=== PATIENT | male | born 1985 | race Caucasian/White ===

== ENCOUNTER 2016-05-16 01:37 | Emergency (ER) | payer OTHER ==
[~2016-05-16] VITALS: Ht 172.7 cm; Wt 91.8 kg
[~2016-05-16 01:37] MED LIST: BENTYL10 MG PO; FLEXERIL10 MG PO; MOTRIN600 MG PO; MOTRIN800 MG PO; TYLENOL WITH C1 EACH PO; ULTRAM50 MG PO; ZOFRAN4 MG PO
[2016-05-16 02:37] LABS: MCH 29.9 PG (29.0-34.0); MCHC 34.9 G/DL (30.0-36.0); MCV 85.7 FL (86-99); MEAN PLAT.VOLUME 10.9 uM^3 (9.0-12.4); PLATELET COUNT 148 K/uL (156-360); RBC DIS.WIDTH-CV 12.5 % (11.8-14.6); RBC DIS.WIDTH-SD 37.8 % (39-53); RED BLOOD COUNT 5.02 M/uL (4.00-5.50); WHITE BLOOD COUNT 6.9 K/uL (4.1-10.2)
[2016-05-16 02:45] LABS: CHLORIDE 108 mEq/L (99-109); SODIUM 142 mEq/L (136-147)
[2016-05-16 02:47] LABS: GLUCOSE 109 mg/dL (70-99)
[2016-05-16 02:48] LABS: ANION GAP 14 MEQ/L (2-14)
[2016-05-16 02:50] LABS: GFR ESTIMATE (CALCULATED) > 59 mL/min/; SERUM ETHYL ALCOHOL 231 mg/dL
[2016-05-16 02:51] LABS: UREA NITROGEN (BUN) 19 mg/dL (9-23)
[2016-05-16] MEDS ORDERED: ZOFRAN ODT4 MG PO (05:55)
[2016-05-16 10:39] VITALS: BP 125/68
== END 2016-05-16 10:46 | disposition home or self-care (01) ==
LOC: EME 01:37
PROVIDERS: Emergency Medicine
DX: F10.129 Alcohol abuse with intoxication, unspecified (principal); R11.2 Nausea with vomiting, unspecified
CPT/HCPCS: 80048; 85027; 99281; 99285; G0480; J7120

== ENCOUNTER 2017-03-26 15:28 | Emergency (ER) | payer SELFPAY ==
[~2017-03-26] VITALS: Ht 172.7 cm; Wt 103.4 kg
[~2017-03-26 15:28] MED LIST changes: +ZOFRAN ODT4 MG PO
[2017-03-26] MEDS ORDERED: MOTRIN800 MG PO (17:08)
[2017-03-26 18:05] VITALS: BP 134/78
== END 2017-03-26 18:05 | disposition home or self-care (01) ==
LOC: EME 15:28
PROC: 3E0234Z Introduction of Serum, Toxoid and Vaccine into Muscle, Percutaneous Approach (ICD-10-PCS; principal; 2017-03-26)
DX: S93.401A Sprain of unspecified ligament of right ankle, initial encounter (principal); S40.211A Abrasion of right shoulder, initial encounter; S80.811A Abrasion, right lower leg, initial encounter; V09.9XXA Pedestrian injured in unspecified transport accident, initial encounter; Y92.410 Unspecified street and highway as the place of occurrence of the external cause; Z23 Encounter for immunization
CPT/HCPCS: 73610; 73630; 99281; 99284; J3010